=== PATIENT | male | born 2000 | race American Indian/Alaskan Native ===

== ENCOUNTER 2018-07-18 10:32 | Inpatient (IN) | payer MEDICAID, OTHER ==
[2018-07-18] MEDS ORDERED: NACL 0.9% 1000 ML 1,000 ML IV ONE ×2 (11:28→12:56)
--- NOTE | 2018-07-18 11:28 | Emergency Department Report ---
ED General Adult HPI - General Chief complaint: Hyperglycemia Stated complaint: HIGH BLOOD SUGAR Time Seen by Provider: 07/18/18 11:21 Source: patient, EMS (ems notes not available at time of chart dictation), RN notes reviewed, old records reviewed Mode of arrival: Ambulatory Limitations: No Limitations - History of Present Illness Initial comments: This is a 17-year-old gentleman who is known to this provider previously. His past medical history of diabetes, recent hemoglobin A1c is greater than 13. He does not have a local primary care doctor. He is currently incarcerated, does not have access to his insulins. He presents to the emergency room with resolved nausea, malaise, cramping, fatigue, general weakness, and states "I think I have DKA." Symptoms present for the past 2-3 days, constant, getting worse, do not radiate anywhere, they're painless, and do not have exacerbating or relieving factors. No urinary symptoms. Positive dry cough. No physical pain at this time. He is requesting to have ice water at this time. -: Gradual, days(s) Severity scale (0 -10): 0 Consistency: constant Improves with: other Worsens with: other Associated Symptoms: malaise, nausea/vomiting, weakness - Related Data Home Medications Medication Instructions Recorded Confirmed Last Taken Lantus 35 units SUB-Q HS 07/18/18 07/18/18 Unknown NovoLOG 100 UNITS/ML VIAL See Protocol SUB-Q PRN PRN 07/18/18 07/18/18 Unknown Allergies Allergy/AdvReac Type Severity Reaction Status Date / Time No Known Allergies Allergy Verified 07/18/18 11:10 ED Review of Systems ROS: Stated complaint: HIGH BLOOD SUGAR Other details as noted in HPI Constitutional: malaise, weakness. denies: fever Eyes: denies: vision change ENT: denies: epistaxis Respiratory: cough Cardiovascular: denies: chest pain Gastrointestinal: denies: abdominal pain, vomiting Genitourinary: denies: dysuria Musculoskeletal: denies: back pain Skin: denies: lesions Neurological: weakness Psychiatric: denies: anxiety ED Past Medical Hx - Past Medical History Hx Diabetes: Yes - Surgical History Past Surgical History?: No - Social History Smoking Status: Current Every Day Smoker Substance Use Type: None - Medications Home Medications: Home Medications Medication Instructions Recorded Confirmed Last Taken Type Lantus 35 units SUB-Q HS 07/18/18 07/18/18 Unknown History NovoLOG 100 UNITS/ML VIAL See Protocol SUB-Q PRN PRN 07/18/18 07/18/18 Unknown History ED Physical Exam - General Limitations: No Limitations General appearance: alert, in no apparent distress - Head Head exam: Present: atraumatic, normocephalic - Eye Eye exam: Present: normal appearance, EOMI. Absent: nystagmus - ENT ENT exam: Present: normal exam, normal orophraynx, mucous membranes moist, normal external ear exam - Neck Neck exam: Present: normal inspection, full ROM. Absent: tenderness, men ingismus - Respiratory Respiratory exam: Present: normal lung sounds bilaterally. Absent: respiratory distress - Cardiovascular Cardiovascular Exam: Present: normal rhythm, tachycardia, normal heart sounds. Absent: systolic murmur, diastolic murmur, rubs, gallop - GI/Abdominal GI/Abdominal exam: Present: soft. Absent: distended, tenderness, guarding, rebound, rigid, pulsatile mass - Rectal Rectal exam: Present: deferred - Extremities Exam Extremities exam: Present: normal inspection, full ROM, other (2+ pulses noted in the bilateral upper, lower extremities. Compartments soft. No long bony ten derness. The pelvis is stable.). Absent: pedal edema, joint swelling, calf tenderness - Back Exam Back exam: Present: normal inspection, full ROM. Absent: tenderness, CVA tenderness (R), paraspinal tenderness, vertebral tenderness - Neurological Exam Neurological exam: Present: alert, CN II-XII intact, other (Extraocular movements intact. Tongue midline. No facial droop. Facial sensation intact to light touch in the V1, V2, V3 distribution bilaterally. 5 and 5 strength in 4 extremities.. Sensation is intact to light touch in 4 extremities.). Absent: motor sensory deficit - Psychiatric Psychiatric exam: Present: anxious - Skin Skin exam: Present: warm, dry, intact, normal color. Absent: rash ED Course Vital Signs 07/18/18 11:10 Temperature 97.7 F Pulse Rate 97 H Respiratory 16 Rate Blood Pressure 127/77 O2 Sat by Pulse 99 Oximetry - Reevaluation(s) Reevaluation #1: 07/18/18 15:03 Hyperkalemia is reviewed and appreciated, this is likely a function of dehydration, and insulin deficiency. I anticipate that hyperkalemia will normalize with initiation of insulin and fluid therapy. ED Medical Decision Making - Lab Data Result diagrams: 07/18/18 11:32 07/18/18 13:25 Vital Signs 07/18/18 11:10 Temperature 97.7 F Pulse Rate 97 H Respiratory 16 Rate Blood Pressure 127/77 O2 Sat by Pulse 99 Oximetry Lab Results 07/18/18 07/18/18 07/18/18 Range/Units 11:08 11:32 11:32 WBC 22.5 H (4.5-11.0) K/mm3 RBC 5.56 H (3.65-5.03) M/mm3 Hgb 15.3 H (11.8-15.2) gm/dl Hct 46.7 H (35.5-45.6) % MCV 84 (84-94) fl MCH 28 (28-32) pg MCHC 33 (32-34) % RDW 13.3 (13.2-15.2) % Plt Count 335 (140-440) K/mm3 VBG pH (7.320-7.420) Sodium 134 L (137-145) mmol/L Potassium 6.0 H (3.6-5.0) mmol/L Chloride 94.0 L (98-107) mmol/L Carbon Dioxide 17 L (22-30) mmol/L Anion Gap 29 mmol/L BUN 29 H (9-20) mg/dL Creatinine 1.0 (0.8-1.5) mg/dL Estimated GFR > 60 ml/min BUN/Creatinine Ratio 29 % Glucose 431 H (75-100) mg/dL POC Glucose 391 H (70-105) Calcium 9.3 (8.4-10.2) mg/dL Phosphorus (2.5-4.5) mg/dL Magnesium 2.00 (1.7-2.3) mg/dL Total Creatine Kinase 136 (55-170) units/L 07/18/18 07/18/18 07/18/18 Range/Units 11:32 13:25 13:25 WBC (4.5-11.0) K/mm3 RBC (3.65-5.03) M/mm3 Hgb (11.8-15.2) gm/dl Hct (35.5-45.6) % MCV (84-94) fl MCH (28-32) pg MCHC (32-34) % RDW (13.2-15.2) % Plt Count (140-440) K/mm3 VBG pH 7.247 L (7.320-7.420) Sodium 133 L (137-145) mmol/L Potassium 5.8 H (3.6-5.0) mmol/L Chloride 95.4 L (98-107) mmol/L Carbon Dioxide 14 L (22-30) mmol/L Anion Gap 29 mmol/L BUN 30 H (9-20) mg/dL Creatinine 1.0 (0.8-1.5) mg/dL Estimated GFR > 60 ml/min BUN/Creatinine Ratio 30 % Glucose 424 H (75-100) mg/dL POC Glucose (70-105) Calcium 8.9 (8.4-10.2) mg/dL Phosphorus 4.10 (2.5-4.5) mg/dL Magnesium 1.90 (1.7-2.3) mg/dL Total Creatine Kinase (55-170) units/L 07/18/18 Range/Units 14:24 WBC (4.5-11.0) K/mm3 RBC (3.65-5.03) M/mm3 Hgb (11.8-15.2) gm/dl Hct (35.5-45.6) % MCV (84-94) fl MCH (28-32) pg MCHC (32-34) % RDW (13.2-15.2) % Plt Count (140-440) K/mm3 VBG pH (7.320-7.420) Sodium (137-145) mmol/L Potassium (3.6-5.0) mmol/L Chloride (98-107) mmol/L Carbon Dioxide (22-30) mmol/L Anion Gap mmol/L BUN (9-20) mg/dL Creatinine (0.8-1.5) mg/dL Estimated GFR ml/min BUN/Creatinine Ratio % Glucose (75-100) mg/dL POC Glucose 370 H (70-105) Calcium (8.4-10.2) mg/dL Phosphorus (2.5-4.5) mg/dL Magnesium (1.7-2.3) mg/dL Total Creatine Kinase (55-170) units/L - EKG Data -: EKG Interpreted by Mi EKG shows normal: sinus rhythm Rate: normal - EKG Data 07/18/18 15:00 Sinus rhythm, 87 bpm, normal axis, QTC within normal limits, high left ventricular voltage, incomplete right bundle branch block, atrial enlargement, not having chest pain, not consistent with ST elevation myocardial infarction. - Radiology Data Radiology results: pending, image reviewed interpreted by me: X-ray of the chest is negative for acute disease. - Medical Decision Making Differential diagnosis, including but not limited to: Dehydration, diabetic ketoacidosis, hyperosmolar state Assessment and plan: 17-year-old gentleman with hyperglycemia, acidosis, anion gap, suggestive of diabetic ketoacidosis. Patient will be started on the diabetic ketoacidosis protocol with copious IV fluids. Oral hydration is permitted. He will be admitted to the medical service for correction of his electrolyte derangements. Leukocytosis is reviewed and appreciated, this is most likely a stress reaction, based off of the history and physical, I do not suspect invasive bacterial illness at this time. Discussed with critical care physician, Dr. Catalan, who agrees with placement into the intensive care unit. Presenting case to Hospital physician, Dr. Jessica Neil, who has accepted the patient to the medical service for presumed diabetic ketoacidosis. Critical Care Time: Yes Critical care time in (mins) excluding proc time.: 35 Critical care attestation.: If time is entered above; I have spent that time in minutes in the direct care of this critically ill patient, excluding procedure time. ED Disposition Clinical Impression: DKA (diabetic ketoacidoses) Disposition: 09 OP ADMIT IP TO THIS HOSP Is pt being admited?: Yes Condition: Critical Instructions: Diabetic Ketoacidosis (ED) Referrals: PRIMARY CARE, [Primary Care Provider] - 3-5 Days
[2018-07-18 12:15] LABS: Hematocrit 46.7 % (35.5-45.6); Hemoglobin 15.3 gm/dl (11.8-15.2); Mean Corpuscular HGB Conc 33 % (32-34); Mean Corpuscular Volume 84 fl (84-94); Platelet Count 335 K/mm3 (140-440); Red Blood Count 5.56 M/mm3 (3.65-5.03); Red Cell Distribution Width 13.3 % (13.2-15.2)
[2018-07-18 12:32] LABS: BUN/Creatinine Ratio 29; Blood Urea Nitrogen 29 mg/dL (9-20); Calcium 9.3 mg/dL (8.4-10.2); Hemolysis Index 42
[2018-07-18] MEDS ORDERED: D50W (25GM) Syringe IV PRN ×2 (12:56→16:49)
[2018-07-18] MEDS ORDERED: HumuLIN R IV ONE (12:56)
[2018-07-18] MEDS ORDERED: D5W/0.45% NACL/KCL 20 MEQ 20 MEQ/1,000 ML BAG IV SCH (13:00)
[2018-07-18] MEDS ORDERED: SODIUM CHLORIDE FLUSH SYRINGE 10 ML IV NR (13:00)
[2018-07-18] MEDS ORDERED: NACL 0.9% 1000 ML 2,000 ML IV ONE (13:32)
[2018-07-18] MEDS ORDERED: HumuLIN R 100 UNITS in NACL 0.9% 99 ML IV SCH ×2 (14:00→17:00)
[2018-07-18 14:16] LABS: BUN/Creatinine Ratio 30; Blood Urea Nitrogen 30 mg/dL (9-20)
[2018-07-18 14:24] LABS: Calcium 8.9 mg/dL (8.4-10.2)
--- NOTE | 2018-07-18 15:14 | XRay Report ---
PROCEDURE: CR XR CHEST 1V AP TECHNIQUE: Frontal chest x-ray HISTORY: cough dka sirs COMPARISONS: None FINDINGS: Normal heart size. Lungs are clear and well-expanded without focal infiltrate or consolidation. No definite effusion. IMPRESSION: No acute cardiopulmonary disease.. This document is electronically signed by Norma Fry MD., July 18 2018 02:15:47 PM ET
[2018-07-18] MEDS ORDERED: ZOFRAN IV PRN (16:47)
[2018-07-18] MEDS ORDERED: MORPHINE IV PRN (16:47)
[2018-07-18] MEDS ORDERED: TYLENOL PO PRN (16:47)
[2018-07-18] MEDS ORDERED: SODIUM CHLORIDE FLUSH SYRINGE 10 ML IV PRN (16:47)
[2018-07-18] MEDS ORDERED: DILAUDID IV PRN (16:47)
--- NOTE | 2018-07-18 16:47 | History and Physical Report ---
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 No urinary symptoms. Positive dry cough. No physical pain at this time. He is requesting to have ice water at this time.In [facility] he's not getting his LA nsulin asnd not getting SA Insulin properly.No fever or chills. Past Medical History Hx Diabetes: Yes Surgical History Past Surgical History?: No Social History Smoking Status: Current Every Day Smoker Substance Use Type: None Medications Home Medications: Home Medications Medication Instructions Recorded Confirmed Last Taken Type Lantus 35 units SUB-Q HS 07/18/18 07/18/18 Unknown History NovoLOG 100 UNITS/ML VIAL See Protocol SUB-Q PRN PRN 07/18/18 07/18/18 Unknown History Review of Systems ROS: Stated complaint: HIGH BLOOD SUGAR Other details as noted in HPI Constitutional: malaise, weakness. denies: fever Eyes: denies: vision change ENT: denies: epistaxis Respiratory: cough Cardiovascular: denies: chest pain Gastrointestinal: denies: abdominal pain, vomiting Genitourinary: denies: dysuria Musculoskeletal: denies: back pain Skin: denies: lesions Neurological: weakness Psychiatric: denies: anxiety Medications and Allergies Allergies Allergy/AdvReac Type Severity Reaction Status Date / Time No Known Allergies Allergy Verified 07/18/18 11:10 Home Medications Medication Instructions Recorded Confirmed Last Taken Type Lantus 35 units SUB-Q HS 07/18/18 07/18/18 Unknown History NovoLOG 100 UNITS/ML VIAL See Protocol SUB-Q PRN PRN 07/18/18 07/18/18 Unknown History Active Meds: Active Medications Dextrose (D50w (25gm) Syringe) 0 ml IV PRN PRN PRN Reason: Hypoglycemia Potassium Chloride/Dextrose/Sod Cl (D5w/0.45% Nacl/Kcl 20 Meq) 20 meq in 1,000 mls @ 125 mls/hr IV DIRECT DINORA Insulin Human Regular 100 (units/ Sodium Chloride) 100 mls @ 1 mls/hr IV TITR DINORA; Protocol Last Titration: 07/18/18 16:37 Dose: 8 units/hr, 8 mls/hr Documented by: Sodium Chloride (Sodium Chloride Flush Syringe 10 Ml) 10 ml IV PRN NR Stop: 07/18/18 23:59 Exam - Constitutional Vitals: Temp Pulse Resp BP Pulse Ox 97.7 F 95 H 16 119/66 100 07/18/18 11:10 07/18/18 15:35 07/18/18 15:35 07/18/18 15:35 07/18/18 15:35 General appearance: Present: no acute distress, well-nourished - EENT Eyes: Present: PERRL ENT: hearing intact, clear oral mucosa - Neck Neck: Present: supple, normal ROM - Respiratory Respiratory effort: normal Respiratory: bilateral: CTA - Cardiovascular Heart rate: 88 Rhythm: regular Heart Sounds: Present: S1 & S2. Absent: rub, click - Extremities Extremities: no ischemia, pulses intact, pulses symmetrical, No edema Peripheral Pulses: within normal limits - Abdominal General gastrointestinal: Present: soft, non-tender, non-distended, normal bowel sounds Male genitourinary: Present: normal - Rectal Rectal Exam: deferred - Integumentary Integumentary: Present: clear, warm, dry - Musculoskeletal Musculoskeletal: gait normal, strength equal bilaterally - Psychiatric Psychiatric: appropriate mood/affect, intact judgment & insight - Neurologic Neurologic: CNII-XII intact, moves all extremities - Allied Health Allied health notes reviewed: nursing Results - Labs CBC & Chem 7: 07/18/18 11:32 07/19/18 01:10 Labs: Laboratory Last Values WBC 22.5 K/mm3 (4.5-11.0) H 07/18/18 11:32 RBC 5.56 M/mm3 (3.65-5.03) H 07/18/18 11:32 Hgb 15.3 gm/dl (11.8-15.2) H 07/18/18 11:32 Hct 46.7 % (35.5-45.6) H 07/18/18 11:32 MCV 84 fl (84-94) 07/18/18 11:32 MCH 28 pg (28-32) 07/18/18 11:32 MCHC 33 % (32-34) 07/18/18 11:32 RDW 13.3 % (13.2-15.2) 07/18/18 11:32 Plt Count 335 K/mm3 (140-440) 07/18/18 11:32 VBG pH 7.247 (7.320-7.420) L 07/18/18 11:32 Sodium 133 mmol/L (137-145) L 07/18/18 13:25 Potassium 5.8 mmol/L (3.6-5.0) H 07/18/18 13:25 Chloride 95.4 mmol/L (98-107) L 07/18/18 13:25 Carbon Dioxide 14 mmol/L (22-30) L 07/18/18 13:25 Anion Gap 29 mmol/L 07/18/18 13:25 BUN 30 mg/dL (9-20) H 07/18/18 13:25 Creatinine 1.0 mg/dL (0.8-1.5) 07/18/18 13:25 Estimated GFR > 60 ml/min 07/18/18 13:25 BUN/Creatinine Ratio 30 % 07/18/18 13:25 Glucose 424 mg/dL (75-100) H 07/18/18 13:25 POC Glucose 319 (70-105) H 07/18/18 16:36 Calcium 8.9 mg/dL (8.4-10.2) 07/18/18 13:25 Phosphorus 4.10 mg/dL (2.5-4.5) 07/18/18 13:25 Magnesium 1.90 mg/dL (1.7-2.3) 07/18/18 13:25 Total Creatine Kinase 136 units/L (55-170) 07/18/18 11:32 Assessment and Plan Assessment and plan: CRitical care time 35 minutes Advance Directives: Yes (Full code) VTE prophylaxis?: Chemical Plan of care discussed with patient/family: Yes - Patient Problems (1) DKA (diabetic ketoacidoses) Current Visit: Yes Status: Acute Qualifiers: Diabetes mellitus type: type 1 Plan to address problem: DKA protocol IV Insulin IV Fluids Need to Take LA Insulin and SA Insulin regularly and controlling BG levels [id number] and 150 (2) Hyponatremia Current Visit: Yes Status: Acute Plan to address problem: Should corredt with correction of BG levels (3) Hyperkalemia Current Visit: Yes Status: Acute Plan to address problem: Should corrrect with correction of BG levels (4) SIRS (systemic inflammatory response syndrome) Current Visit: Yes Status: Acute Plan to address problem: Leukocytosis presint IV CEFEPIME EMPIRICALLy PossibleDemargination No source of infection found (5) DVT prophylaxis Current Visit: Yes Status: Acute Plan to address problem: On Lovenox and GI prophlaxis
[2018-07-18] MEDS ORDERED: D5/0.45NS 1,000 ML IV ONE (17:46)
[2018-07-18] MEDS: D5/0.45NS 1,000 ML IV SCH (18:32)
[2018-07-18 20:15] LABS: BUN/Creatinine Ratio 27; Blood Urea Nitrogen 24 mg/dL (9-20); Calcium 8.3 mg/dL (8.4-10.2); Hemolysis Index 4
[2018-07-18 21:01] LABS: BUN/Creatinine Ratio 24; Blood Urea Nitrogen 22 mg/dL (9-20); Calcium 8.2 mg/dL (8.4-10.2); Hemolysis Index 9
[2018-07-18] MEDS ORDERED: PEPCID IV ONE (22:12)
[2018-07-18] MEDS: SODIUM CHLORIDE FLUSH SYRINGE 10 ML IV SCH (23:13)
[2018-07-18] MEDS: PEPCID IV SCH (23:13)
[2018-07-19 01:39] LABS: BUN/Creatinine Ratio 24; Blood Urea Nitrogen 19 mg/dL (9-20); Calcium 8.2 mg/dL (8.4-10.2); Hemolysis Index 6
[2018-07-19] MEDS ORDERED: LANTUS SUB-Q ONE (03:05)
[2018-07-19 09:40] LABS: BUN/Creatinine Ratio 24; Blood Urea Nitrogen 22 mg/dL (9-20); Calcium 8.4 mg/dL (8.4-10.2); Hemolysis Index 2
[2018-07-19] MEDS: PEPCID IV SCH ×2 (09:41→21:45)
[2018-07-19] MEDS: HumaLOG SUB-Q SCH ×4 (09:42→21:45)
[2018-07-19] MEDS: SODIUM CHLORIDE FLUSH SYRINGE 10 ML IV SCH ×2 (09:43→21:47)
[2018-07-19 09:49] LABS: Alanine Aminotransferase 12 units/L (7-56); Albumin 3.2 g/dL (3.9-5); BUN/Creatinine Ratio 24; Blood Urea Nitrogen 22 mg/dL (9-20); Calcium 8.4 mg/dL (8.4-10.2); Hemolysis Index 8
[2018-07-19] MEDS: MAXIPIME/NS 2 GM/100 ML 2 GM/100 ML BAG IV SCH ×3 (11:21→21:47)
[2018-07-19] MEDS: D5/0.45NS 1,000 ML IV SCH ×2 (11:21→21:46)
--- NOTE | 2018-07-19 12:52 | Progress Note ---
Assessment and Plan his is a 17-year-old gentleman who is known to this provider previously. His past medical history of diabetes, recent hemoglobin A1c is greater than 13. He does not have a local primary care doctor. He is currently incarcerated, does n ot have access to his insulins. He presents to the emergency room with resolved nausea, malaise, cramping, fatigue, general weakness, and states "I think I have DKA." Symptoms present for the past 2-3 days, constant, getting worse, do not radiate anywhere, they're painless, and do not have exacerbating or relieving factors. No urinary symptoms. Positive dry cough. No physical pain at this time. He is requesting to have ice water at this time. - DKA (diabetic ketoacidoses) DKA protocol. Off insulin drip Continue sliding scale insulin IV Fluids -Diabetes mellitus type: type 1 Sliding-scale insulin Consistent carbohydrates diet - Hyponatremia Should corrected with correction of blood glucose levels - Hyperkalemia Current Visit: Yes Status: Acute Plan to address problem: Should corrrect with correction of BG levels - SIRS (systemic inflammatory response syndrome) Current Visit: Yes Status: Acute Plan to address problem: Leukocytosis presint IV CEFEPIME EMPIRICALLy Possible Demargination No source of infection found - DVT prophylaxis Current Visit: Yes Status: Acute Plan to address problem: On Lovenox and GI prophlaxis Subjective Date of service: 07/19/18 Principal diagnosis: DKA, SIRS, hyponatremia Interval history: Sitting up bed in no distress. Objective - Exam Narrative Exam: Constitutional: Well-nourished well-developed. In no distress Head: Normocephalic atraumatic Eyes: Pupils are equal round and reactive to light Nose: No enlarged turbinates, no septal deviation. Mouth: Moist mucous membranes. Neck: Supple no thyromegaly. No bruit. No JVD Heart: Regular rate and rhythm, S1-S2 normal. No rubs murmurs or gallop Lungs: Clear to auscultation bilaterally. no rales or rhonchi Abdomen: Soft, nontender. Bowel sound are present. Extremities: No edema, no cyanosis, no clubbing. Neuro: Alert oriented Oriented x3. No focal sensory or motor deficit. Skin: No rashes or hyperpigmented spots Musculoskeletal system: No joint pain or swelling Hematological: No petechia or subcutanous hemorrhages. Immunological: No multiple septic spots on the skin Lymphatic: No generalized lymphadenopathy Psychiatry: Euthymic. Calm. - Constitutional Vitals: Vital Signs - 12hr 07/19/18 07/19/18 07/19/18 00:45 01:00 01:15 Temperature Pulse Rate 84 91 H 93 H Respiratory 12 13 14 Rate Blood Pressure 126/66 110/58 126/74 O2 Sat by Pulse 99 98 Oximetry 07/19/18 07/19/18 07/19/18 01:30 01:45 02:00 Temperature Pulse Rate 88 90 88 Respiratory 15 16 14 Rate Blood Pressure 123/64 120/71 120/71 O2 Sat by Pulse 98 99 98 Oximetry 07/19/18 07/19/18 07/19/18 02:15 02:30 02:45 Temperature Pulse Rate 83 91 H 90 Respiratory 13 14 12 Rate Blood Pressure 113/70 113/62 123/68 O2 Sat by Pulse 97 97 99 Oximetry 07/19/18 07/19/18 07/19/18 03:00 03:15 03:30 Temperature Pulse Rate 82 87 80 Respiratory 13 15 14 Rate Blood Pressure 119/76 129/89 125/82 O2 Sat by Pulse 100 100 100 Oximetry 07/19/18 07/19/18 07/19/18 03:45 04:00 04:15 Temperature Pulse Rate 82 80 82 Respiratory 13 13 14 Rate Blood Pressure 121/75 123/73 127/69 O2 Sat by Pulse 100 99 99 Oximetry 07/19/18 07/19/18 07/19/18 04:30 04:45 05:00 Temperature Pulse Rate 89 91 H 87 Respiratory 12 15 14 Rate Blood Pressure 129/87 140/95 127/76 O2 Sat by Pulse 100 100 Oximetry 07/19/18 07/19/18 07/19/18 05:15 05:30 05:46 Temperature Pulse Rate 96 H 95 H 107 H Respiratory 13 13 16 Rate Blood Pressure 146/88 131/88 124/79 O2 Sat by Pulse 100 100 Oximetry 07/19/18 07/19/18 07/19/18 06:00 06:15 08:36 Temperature 98.6 F Pulse Rate 113 H 111 H 99 H Respiratory 18 17 14 Rate Blood Pressure 127/73 139/90 129/76 O2 Sat by Pulse 100 100 100 Oximetry - Labs CBC & Chem 7: 07/18/18 11:32 07/19/18 08:53 Labs: Abnormal lab results 07/18/18 07/18/18 07/18/18 Range/Units 13:25 14:24 15:35 Sodium 133 L (137-145) mmol/L Potassium 5.8 H (3.6-5.0) mmol/L Chloride 95.4 L (98-107) mmol/L Carbon Dioxide 14 L (22-30) mmol/L BUN 30 H (9-20) mg/dL Glucose 424 H (75-100) mg/dL POC Glucose 370 H 283 H (70-105) Hemoglobin A1c (4-6) % Calcium (8.4-10.2) mg/dL Total Protein (6.3-8.2) g/dL Albumin (3.9-5) g/dL 07/18/18 07/18/18 07/18/18 Range/Units 16:36 17:32 18:32 Sodium (137-145) mmol/L Potassium (3.6-5.0) mmol/L Chloride (98-107) mmol/L Carbon Dioxide (22-30) mmol/L BUN (9-20) mg/dL Glucose (75-100) mg/dL POC Glucose 319 H 214 H 187 H (70-105) Hemoglobin A1c (4-6) % Calcium (8.4-10.2) mg/dL Total Protein (6.3-8.2) g/dL Albumin (3.9-5) g/dL 07/18/18 07/18/18 07/18/18 Range/Units 18:58 18:58 19:58 Sodium (137-145) mmol/L Potassium (3.6-5.0) mmol/L Chloride (98-107) mmol/L Carbon Dioxide 20 L (22-30) mmol/L BUN 24 H (9-20) mg/dL Glucose 157 H (75-100) mg/dL POC Glucose 135 H (70-105) Hemoglobin A1c 12.5 H (4-6) % Calcium 8.3 L (8.4-10.2) mg/dL Total Protein (6.3-8.2) g/dL Albumin (3.9-5) g/dL 07/18/18 07/18/18 07/18/18 Range/Units 20:13 20:50 21:45 Sodium 136 L (137-145) mmol/L Potassium (3.6-5.0) mmol/L Chloride (98-107) mmol/L Carbon Dioxide 20 L (22-30) mmol/L BUN 22 H (9-20) mg/dL Glucose 154 H (75-100) mg/dL POC Glucose 148 H 135 H (70-105) Hemoglobin A1c (4-6) % Calcium 8.2 L (8.4-10.2) mg/dL Total Protein (6.3-8.2) g/dL Albumin (3.9-5) g/dL 07/18/18 07/19/18 07/19/18 Range/Units 22:46 00:50 01:10 Sodium (137-145) mmol/L Potassium (3.6-5.0) mmol/L Chloride 107.7 H (98-107) mmol/L Carbon Dioxide (22-30) mmol/L BUN (9-20) mg/dL Glucose 125 H (75-100) mg/dL POC Glucose 138 H 110 H (70-105) Hemoglobin A1c (4-6) % Calcium 8.2 L (8.4-10.2) mg/dL Total Protein (6.3-8.2) g/dL Albumin (3.9-5) g/dL 07/19/18 07/19/18 07/19/18 Range/Units 05:28 08:23 08:53 Sodium 134 L 133 L (137-145) mmol/L Potassium (3.6-5.0) mmol/L Chloride (98-107) mmol/L Carbon Dioxide 18 L 18 L (22-30) mmol/L BUN 22 H 22 H (9-20) mg/dL Glucose 393 H 398 H (75-100) mg/dL POC Glucose 215 H (70-105) Hemoglobin A1c (4-6) % Calcium (8.4-10.2) mg/dL Total Protein 5.8 L (6.3-8.2) g/dL Albumin 3.2 L (3.9-5) g/dL
[2018-07-19 14:54] LABS: BUN/Creatinine Ratio 23; Blood Urea Nitrogen 23 mg/dL (9-20); Calcium 8.2 mg/dL (8.4-10.2); Hemolysis Index 4
[2018-07-19] MEDS ORDERED: HumaLOG SUB-Q ONE (15:13)
[2018-07-19] MEDS: KCL 10MEQ/100ML 10 MEQ/100 ML BAG IV SCH ×3 (19:19→19:23)
[2018-07-19 19:27] LABS: BUN/Creatinine Ratio 20; Blood Urea Nitrogen 20 mg/dL (9-20); Calcium 8.3 mg/dL (8.4-10.2); Hemolysis Index 29
[2018-07-19 20:42] LABS: Bacteria,Urine 1+ /HPF (Negative); Bilirubin,Urine NEG (Negative); Blood,Urine NEG (Negative); Color,Urine Yellow (Yellow); Mucus,Urine FEW /HPF; Urobilinogen,Urine < 2.0 mg/dL (<2.0)
[2018-07-19] MEDS: LANTUS SUB-Q SCH (21:45)
[2018-07-20] MEDS: MAXIPIME/NS 2 GM/100 ML 2 GM/100 ML BAG IV SCH ×3 (05:19→23:12)
[2018-07-20] MEDS: D5/0.45NS 1,000 ML IV SCH ×2 (06:41→15:00)
[2018-07-20] MEDS: HumaLOG SUB-Q SCH ×3 (07:30→18:13)
[2018-07-20] MEDS: SODIUM CHLORIDE FLUSH SYRINGE 10 ML IV SCH (09:12)
[2018-07-20] MEDS: PEPCID IV SCH (09:12)
--- NOTE | 2018-07-20 17:31 | Progress Note ---
Assessment and Plan Patient is a 17-year-old gentleman who has a h/o diabetes, recent hemoglobin A1c is greater than 13. He does not have a local primary care doctor. He is currently incarcerated, does not have access to his insulins. He presents to the emergency room with resolved nausea, malaise, cramping, fatigue, general weakness, and states "I think I have DKA." Symptoms present for the past 2-3 days, constant, getting worse, do not radiate anywhere, they're painless, and do not have exacerbating or relieving factors. No urinary symptoms. Positive dry cough. No physical pain at this time. He is requesting to have ice water at this time. - DKA (diabetic ketoacidoses) DKA protocol. Off insulin drip Continue sliding scale insulin IV Fluids -Metabolic acidosis Continue with iv hydration -Diabetes mellitus type: type 1 Sliding-scale insulin Consistent carbohydrates diet - Hyponatremia Should corrected with correction of blood glucose levels - Hyperkalemia - corrected - SIRS (systemic inflammatory response syndrome) Current Visit: Yes Status: Acute Plan to address problem: Leukocytosis presint IV CEFEPIME EMPIRICALLy Possible Demargination No source of infection found - DVT prophylaxis Current Visit: Yes Status: Acute Plan to address problem: On Lovenox and GI prophlaxis Subjective Date of service: 07/20/18 Principal diagnosis: DKA, SIRS, hyponatremia Objective - Constitutional Vitals: Vital Signs - 12hr 07/20/18 07/20/18 07/20/18 08:04 10:00 11:23 Temperature 97.9 F 97.9 F Pulse Rate 81 74 84 Respiratory 16 18 Rate Blood Pressure 120/79 105/65 Blood Pressure [Left] O2 Sat by Pulse 100 99 Oximetry 07/20/18 15:09 Temperature 98.2 F Pulse Rate 87 Respiratory 18 Rate Blood Pressure Blood Pressure 119/76 [Left] O2 Sat by Pulse Oximetry - Labs CBC & Chem 7: 07/18/18 11:32 07/19/18 18:26 Labs: Abnormal lab results 07/19/18 07/19/18 07/19/18 Range/Units 18:26 20:02 21:08 Sodium 135 L (137-145) mmol/L Carbon Dioxide 19 L (22-30) mmol/L Glucose 349 H (75-100) mg/dL POC Glucose 294 H (70-105) Calcium 8.3 L (8.4-10.2) mg/dL Ur Specific [place] 1.031 H (1.003-1.030) 07/20/18 Range/Units 11:26 Sodium (137-145) mmol/L Carbon Dioxide (22-30) mmol/L Glucose (75-100) mg/dL POC Glucose 215 H (70-105) Calcium (8.4-10.2) mg/dL Ur Specific [place] (1.003-1.030)
[2018-07-21] MEDS: PEPCID PO SCH ×2 (00:21→10:08)
[2018-07-21] MEDS: SODIUM CHLORIDE FLUSH SYRINGE 10 ML IV SCH ×2 (00:22→10:09)
[2018-07-21] MEDS: HumaLOG SUB-Q SCH ×2 (00:23→10:08)
[2018-07-21] MEDS: LANTUS SUB-Q SCH (00:24)
[2018-07-21] MEDS: MAXIPIME/NS 2 GM/100 ML 2 GM/100 ML BAG IV SCH (06:21)
--- NOTE | 2018-07-21 10:41 | Discharge Summary ---
Providers - Providers Date of Admission: 07/19/18 05:00 Attending physician: MARGARET RENE MD 07/18/18 Consult to Case Management [CONS] Routine Services Needed at Discharge: Slate Cutter Notified:: case management 07/18/18 16:49 Consult to Dietitian/Nutrition [CONS] Routine Physician Instructions: Reason For Exam: DKA Reason for Consult: Nutrition Recommendations Reason for Consult: Diet education Primary care physician: [employer] Hospitalization Condition: Critical Hospital course: 17-year-old man with uncontrolled type 1 diabetes, A1c greater than 13. Currently incarcerated, do not have access to insulins, was brought into the hospital complaining of nausea and malaise cramping fatigue and generalized weakness, she also suspected that he had DKA. The patient was admitted to the hospital with diabetic ketoacidosis and hyperglycemia. He was treated with insulins IV fluids, he clinically improved. He is being discharged on a course of long-acting and bolus insulins. Diagnoses diabetic ketoacidosis Uncontrolled type 1 diabetes SIRS, no evidence of infection Disposition: - TO HOME OR SELFCARE Time spent for discharge: 33 mins Core Measure Documentation - Palliative Care Palliative Care/ Comfort Measures: Not Applicable - Core Measures Any of the following diagnoses?: none Exam - Constitutional Vitals: Temp Pulse Resp BP Pulse Ox 98.2 F 76 18 131/89 100 07/21/18 07:37 07/21/18 07:37 07/21/18 07:37 07/21/18 07:37 07/21/18 07:37 General appearance: Present: no acute distress, well-nourished - EENT Eyes: Present: PERRL ENT: hearing intact, clear oral mucosa - Neck Neck: Present: supple, normal ROM - Respiratory Respiratory effort: normal Respiratory: bilateral: CTA - Cardiovascular Heart Sounds: Present: S1 & S2. Absent: rub, click - Extremities Extremities: pulses symmetrical, No edema Peripheral Pulses: within normal limits - Abdominal General gastrointestinal: Present: soft, non-tender, non-distended, normal bowel sounds Male genitourinary: Present: normal - Integumentary Integumentary: Present: clear, warm, dry - Musculoskeletal Musculoskeletal: gait normal, strength equal bilaterally - Psychiatric Psychiatric: appropriate mood/affect, intact judgment & insight - Neurologic Neurologic: CNII-XII intact, moves all extremities Plan Follow up with: PRIMARY CARE, [Primary Care Provider] - 3-5 Days Prescriptions: Insulin Glargine [Lantus VIAL] 30 units SUB-Q QHS #1 vial
[2018-07-21 10:54] VITALS: BP 110/69
== END 2018-07-21 16:47 | DRG 638 ==
LOC: ED 10:32 → EEVIPCON 10:32 → CC1 15:02 → UNDOADMIN 15:02 → 4A 07-19 05:00
PROVIDERS: ADMIT Internal Medicine; ATTEND Internal Medicine
DX: E10.10 Type 1 diabetes mellitus with ketoacidosis without coma (principal); E87.1 Hypo-osmolality and hyponatremia; R65.10 Systemic inflammatory response syndrome (SIRS) of non-infectious origin without acute organ dysfunction; E87.5 Hyperkalemia; F17.200 Nicotine dependence, unspecified, uncomplicated; Z79.4 Long term (current) use of insulin
CPT/HCPCS: 36415; 71045; 80048; 80053; 81001; 82550; 82805; 82962; 83036; 83735; 84100; 85027; 93005; 93010; G0378; J0692; J1815; J7030

== ENCOUNTER 2018-10-06 17:37 | Emergency (ER) | payer OTHER ==
[2018-10-06] MEDS ORDERED: NACL 0.9% 1000 ML 1,000 ML IV ONE (18:01)
[2018-10-06] MEDS ORDERED: ZOFRAN IV ONE (18:01)
[2018-10-06] MEDS ORDERED: ZOFRAN ONE (18:03)
--- NOTE | 2018-10-06 18:05 | Emergency Department Report ---
HPI - General Chief Complaint: Hyperglycemia Time Seen by Provider: 10/06/18 18:00 - HPI HPI: 17-year-old -[place] male presents to the emergency department via EMS from home with a complaint of nausea, vomiting and concerns for hyperglycemia. The patient has a history of insulin-dependent diabetes and says that he was taking his insulin as previously prescribed. Earlier this afternoon the patient started having some nausea and vomiting. The patient then took a nap and when he woke up he says that he was having constant nausea and vomiting. He has had diabetic ketoacidosis in the past and therefore has concern that he was in this again. EMS found matted blood sugar of 459 on Accu-Chek and an IV was placed with IV fluid resuscitation given. ED Past Medical Hx - Past Medical History Previous Medical History?: Yes Hx Diabetes: Yes - Surgical History Past Surgical History?: Yes Additional Surgical History: Right thumb surgery - Social History Smoking Status: Current Some Day Smoker - Medications Home Medications: Home Medications Medication Instructions Recorded Confirmed Last Taken Type Insulin Lispro [HumaLOG VIAL] 0 units SQ AC #1 vial 07/21/18 Unknown Rx Insulin Glargine [Lantus VIAL] 30 units SUB-Q QHS #1 vial 10/06/18 Unknown Rx ED Review of Systems ROS: Stated complaint: HYPERGLYCEMIA Other details as noted in HPI Comment: All other systems reviewed and negative Constitutional: denies: chills, fever Eyes: denies: eye pain, vision change ENT: denies: ear pain, throat pain Respiratory: denies: cough, shortness of breath Cardiovascular: denies: chest pain, palpitations Endocrine: increased thirst, increased urine Gastrointestinal: nausea, vomiting Genitourinary: frequency. denies: dysuria Musculoskeletal: denies: back pain, arthralgia Skin: denies: rash, lesions Neurological: denies: headache, weakness Physical Exam - Physical Exam Vital Signs: Vital Signs 10/06/18 17:50 Temperature 98 F Pulse Rate 85 Respiratory 20 Rate Blood Pressure 116/84 O2 Sat by Pulse 99 Oximetry Physical Exam: GENERAL: patient is well-developed well-nourished. HENT: Normocephalic. Atraumatic. Patient has moist mucous membranes. EYES: Extraocular motions are intact. NECK: Supple. Trachea is midline. CHEST/LUNGS: Clear to auscultation. There is no respiratory distress noted. HEART/CARDIOVASCULAR: Regular. There is no tachycardia. There is no murmur. ABDOMEN: Abdomen is soft, nontender. Patient has normal bowel sounds. There is no abdominal distention. SKIN: Skin is warm and dry. NEURO: The patient is awake, alert, and oriented. The patient is cooperative. The patient has no focal neurologic deficits. The patient has normal speech. MUSCULOSKELETAL: There is no tenderness or deformity. There is no limitation range of motion. There is no evidence of acute injury. ED Course Vital Signs 10/06/18 17:50 Temperature 98 F Pulse Rate 85 Respiratory 20 Rate Blood Pressure 116/84 O2 Sat by Pulse 99 Oximetry ED Medical Decision Making - Lab Data Result diagrams: 10/06/18 18:10 10/06/18 18:10 - Medical Decision Making This patient presents to the emergency department with the complaint of nausea and vomiting and hyperglycemia. He was given a dose of Zofran but ultimately there have been no signs of any nausea or vomiting since being in the emergency department and the patient is consistently asking for something to drink. His blood sugar was found to be about 330 on the serum glucose. There is no venous acidosis and the patient does not appear to be in diabetic ketoacidosis. He was given 1-2 L of IV fluid resuscitation and some IV insulin. Upon reevaluation, his blood sugars come down to about 220. The patient says he is feeling greatly improved and asking for discharge home. He was given a new prescription for his Lantus. He was given some referrals for primary care. He will return to the ER with any worsening of his symptoms or any acute distress. - Differential Diagnosis DKA, HHNK, Gastroparesis, food poisoning Critical Care Time: No Critical care attestation.: If time is entered above; I have spent that time in minutes in the direct care of this critically ill patient, excluding procedure time. ED Disposition Clinical Impression: Hyperglycemia Disposition: DC-01 TO HOME OR SELFCARE Is pt being admited?: No Condition: Stable Instructions: Diabetic Hyperglycemia (ED) Additional Instructions: Please follow up with a primary care physician in the next few days. Return to the emergency Department with any worsening of your symptoms, any acute distress. Try and stay away from foods that are high in sugar, carbohydrates and starches. Keep a blood sugar log. Prescriptions: Insulin Glargine [Lantus VIAL] 30 units SUB-Q QHS #1 vial Referrals: [facility] [Outside] - 3-5 Days SAMIR VALDERRAMA MD [Staff Physician] - 3-5 Days
[2018-10-06 18:30] LABS: Basophils % (Auto) 0.2 % (0.0-1.8); Hematocrit 44.5 % (35.5-45.6); Hemoglobin 14.4 gm/dl (11.8-15.2); Lymphocytes # (Auto) 1.3 K/mm3 (1.2-5.4); Lymphocytes % (Auto) 9.1 % (13.4-35.0); Mean Corpuscular HGB Conc 32 % (32-34); Mean Corpuscular Volume 84 fl (84-94); Monocytes # (Auto) 0.7 K/mm3 (0.0-0.8); Monocytes % (Auto) 4.5 % (0.0-7.3); Platelet Count 338 K/mm3 (140-440); Red Cell Distribution Width 13.2 % (13.2-15.2)
[2018-10-06 18:41] LABS: Alanine Aminotransferase 10 units/L (7-56); Albumin 3.7 g/dL (3.9-5); BUN/Creatinine Ratio 19; Blood Urea Nitrogen 19 mg/dL (9-20); Calcium 9.4 mg/dL (8.4-10.2); Hemolysis Index 12
[2018-10-06] MEDS ORDERED: HumuLIN R IV ONE (18:53)
[2018-10-06 21:00] VITALS: BP 126/72
== END 2018-10-06 20:59 | disposition home or self-care (01) ==
LOC: ED 17:37
DX: E11.65 Type 2 diabetes mellitus with hyperglycemia (principal); F17.200 Nicotine dependence, unspecified, uncomplicated; Z88.8 Allergy status to other drugs, medicaments and biological substances; Z79.4 Long term (current) use of insulin
CPT/HCPCS: 36415; 80053; 82805; 82962; 85025; 96361; 96374; 96375; 99284; J2405; J7030; J1815